=== PATIENT | male | born 1940 | race Caucasian/White ===

== ENCOUNTER 2018-03-16 20:22 | Emergency (ER) | payer OTHER, MEDICARE ==
[~2018-03-16] VITALS: Ht 185.4 cm; Wt 112.5 kg
[2018-03-16 20:35] VITALS: BP_SYST 135
--- NOTE | 2018-03-16 20:35 | NUR ---
Patient triaged and placed in waiting room. VSS and patient appears in no acute distress at this time. Accompanied by family, awaiting available bed, and MD notified of need for MSE.
--- NOTE | 2018-03-16 20:45 | NUR ---
Patient to ER bed 7 for evaluation.
--- NOTE | 2018-03-16 20:45 | NUR ---
Patient to ER via triage for evaluation of bleeding tongue. Patient reports that he bit his tongue during lunch and that it has continued to bleed. Patient is awake, alert and oriented in no acute distress, vital signs stable, respirations even and unlabored, skin warm and dry to touch. Spouse at bedside, patient able to ambulate to bed 7 without difficulty, with slow, steady gait. Awaiting evaluation by ER MD, will continue to observe and assess.
--- NOTE | 2018-03-16 20:50 | NUR ---
ER at bedside examining patient.
--- NOTE | 2018-03-16 20:55 | NUR ---
Medication reconciliation completed with information provided by patient. Any prior medication reconciliation on file was reviewed and corrected.
[2018-03-16] MEDS ORDERED: LANS15CA14 PO (20:56)
[2018-03-16] MEDS ORDERED: CLOP300T2 PO (20:56)
[2018-03-16] MEDS ORDERED: EZET1TAB31 PO (20:56)
[2018-03-16] MEDS ORDERED: TADA5TAB2 PO (20:56)
[2018-03-16] MEDS ORDERED: FURO-150 PO (20:56)
[2018-03-16] MEDS ORDERED: CETI-354 PO (20:56)
[2018-03-16] MEDS ORDERED: NOR10 PO (20:56)
[2018-03-16] MEDS ORDERED: GLU500 PO (20:56)
[2018-03-16] MEDS ORDERED: ISOS30TA6 PO (20:56)
[2018-03-16] MEDS ORDERED: DITXL5 PO (20:56)
--- NOTE | 2018-03-16 21:10 | NUR ---
Patient's tongue has stopped bleeding, Dr Khan notified.
--- NOTE | 2018-03-16 21:15 | NUR ---
Patient refusing lab work at this time, Dr Khan notified of patient's refusal.
[2018-03-16 21:30] VITALS: BP_SYST 130
--- NOTE | 2018-03-16 21:30 | NUR ---
Patient given written and verbal discharge instructions and verbalizes understanding. ER MD discussed with patient the results and treatment provided. Patient in stable condition. ID arm band removed. No RX given. Patient educated on pain management and to follow up with PMD. Pain Scale 0. Opportunity for questions provided and answered. Medication side effect fact sheet provided. Patient left ER in no acute distress, ambulating without difficulty with slow, steady gait with spouse at his side. No active bleeding noted from his tongue.
== END 2018-03-16 21:30 | disposition home or self-care (01) ==
LOC: SED 20:22
DX: S01.512A Laceration without foreign body of oral cavity, initial encounter (principal); I48.91 Unspecified atrial fibrillation; E78.5 Hyperlipidemia, unspecified; E11.9 Type 2 diabetes mellitus without complications; I10 Essential (primary) hypertension; Z88.0 Allergy status to penicillin; Z88.1 Allergy status to other antibiotic agents; Z88.5 Allergy status to narcotic agent; Z88.8 Allergy status to other drugs, medicaments and biological substances; Z79.899 Other long term (current) drug therapy; W50.3XXA Accidental bite by another person, initial encounter; Y93.89 Activity, other specified; Y92.89 Other specified places as the place of occurrence of the external cause; Y99.8 Other external cause status
CPT/HCPCS: 99281

== ENCOUNTER 2019-03-13 11:34 | Emergency (ER) | payer OTHER, MEDICARE ==
[~2019-03-13] VITALS: Ht 185.4 cm; Wt 113.4 kg
[~2019-03-13 11:34] MED LIST: CETI-354 PO; CLOP300T2 PO; DITXL5 PO; EZET1TAB31 PO; FURO-150 PO; GLU500 PO; ISOS30TA6 PO; LANS15CA14 PO; NOR10 PO; TADA5TAB2 PO
[2019-03-13 12:15] VITALS: BP_SYST 150
--- NOTE | 2019-03-13 12:22 | NUR ---
BS 174
--- NOTE | 2019-03-13 13:31 | NUR ---
Patient to ER bed 5 to gown for evaluation. Side rails up.
--- NOTE | 2019-03-13 13:40 | NUR ---
Pt brought self to ER for c/o upper torso rash, redness, no pain, lasting 2 days. Hx asthma, recent laryngitis
--- NOTE | 2019-03-13 13:45 | NUR ---
Dr Orta at bedside to assess
[2019-03-13] MEDS ORDERED: DIPHENHYDRAMINE INJ 50 MG/ML VIAL IM ONE (14:15)
--- NOTE | 2019-03-13 14:38 | NUR ---
50mg Benadryl administered to pt
[2019-03-13 15:07] LABS: BASOPHILS % (AUTO) 0.3 % (0.0-2.0); EOSINOPHILS # (AUTO) 0.1 K/uL (0.0-0.4); EOSINOPHILS % (AUTO) 1.8 % (0.0-4.0); HEMATOCRIT 46.5 % (36-54); HEMOGLOBIN 16.1 g/dL (14.0-18.0); LYMPHOCYTES # (AUTO) 1.8 K/uL (1.0-5.5); LYMPHOCYTES % (AUTO) 22.7 % (20.5-51.5); MEAN CORPUSCULAR HEMOGLOBIN 33 pg (27-31); MEAN CORPUSCULAR HGB CONC 35 % (32-36); MEAN CORPUSCULAR VOLUME 96 fL (79.0-98.0); MONOCYTES # (AUTO) 0.7 K/uL (0.0-1.0); MONOCYTES % (AUTO) 8.7 % (1.7-9.3); NEUTROPHILS # (AUTO) 5.2 K/uL (1.8-7.7); NEUTROPHILS % (AUTO) 66.5 % (40.0-70.0); PLATELET COUNT (AUTO) 142 K/uL (130-430); RED BLOOD CELL COUNT(AUTO) 4.85 MIL/uL (4.2-6.2); RED CELL DISTRIBUTION WIDTH 14.1 % (9.0-15.0); WHITE BLOOD COUNT (AUTO) 7.8 K/uL (4.8-10.8)
[2019-03-13 16:17] VITALS: BP_SYST 118
--- NOTE | 2019-03-13 16:18 | NUR ---
Patient given written and verbal discharge instructions and verbalizes understanding. ER MD discussed with patient the results and treatment provided. Patient in stable condition. ID arm band removed. IV catheter removed intact and dressing applied, no active bleeding. Rx of Benadryl given. Patient educated on pain management and to follow up with PMD. Pain Scale 0/10. Opportunity for questions provided and answered. Medication side effect fact sheet provided.
== END 2019-03-13 16:18 | disposition home or self-care (01) ==
LOC: SED 11:34
DX: B09 Unspecified viral infection characterized by skin and mucous membrane lesions (principal); I10 Essential (primary) hypertension; E11.9 Type 2 diabetes mellitus without complications; K21.9 Gastro-esophageal reflux disease without esophagitis; E78.5 Hyperlipidemia, unspecified; Z79.899 Other long term (current) drug therapy; Z88.6 Allergy status to analgesic agent; Z88.0 Allergy status to penicillin; Z88.1 Allergy status to other antibiotic agents; Z88.3 Allergy status to other anti-infective agents; Z88.8 Allergy status to other drugs, medicaments and biological substances; Z79.51 Long term (current) use of inhaled steroids
CPT/HCPCS: 36415; 85025; 96372; 99283; J1200

== ENCOUNTER 2020-07-26 07:16 | Emergency (ER) | payer OTHER, MEDICARE ==
[~2020-07-26] VITALS: Ht 172.7 cm; Wt 99.8 kg
[~2020-07-26 07:16] MED LIST changes: -ISOS30TA6 PO; +ISOS30TA85 PO
[2020-07-26 07:24] VITALS: BP_SYST 161
[2020-07-26] MEDS ORDERED: OXYM15MI9 NS (08:39)
[2020-07-26 08:50] VITALS: BP_SYST 140
== END 2020-07-26 08:51 | disposition home or self-care (01) ==
LOC: SED 07:16
DX: R04.0 Epistaxis (principal); I10 Essential (primary) hypertension; E11.9 Type 2 diabetes mellitus without complications; K21.9 Gastro-esophageal reflux disease without esophagitis; E78.5 Hyperlipidemia, unspecified; Z79.899 Other long term (current) drug therapy; Z88.1 Allergy status to other antibiotic agents; Z88.0 Allergy status to penicillin; Z88.6 Allergy status to analgesic agent
CPT/HCPCS: 99282

== ENCOUNTER 2021-01-26 11:07 | Emergency (ER) | payer OTHER, MEDICARE ==
[~2021-01-26] VITALS: Ht 185.4 cm; Wt 106.6 kg
[~2021-01-26 11:07] MED LIST changes: +OXYM15MI9 NS
[2021-01-26 11:14] VITALS: BP_SYST 138
[2021-01-26] MEDS ORDERED: HYDR-3917 PO (11:37)
[2021-01-26] MEDS ORDERED: IBUP-1969 PO (11:37)
[2021-01-26] MEDS ORDERED: IBUPROFEN 800 MG TABLET PO ONE (11:45)
[2021-01-26] MEDS ORDERED: HYDROcodone/ACETAMIN 10-325 MG TAB PO ONE (11:45)
[2021-01-26 12:04] VITALS: BP_SYST 136
== END 2021-01-26 12:06 | disposition home or self-care (01) ==
LOC: SED 11:07
DX: M54.41 Lumbago with sciatica, right side (principal); I10 Essential (primary) hypertension; E11.9 Type 2 diabetes mellitus without complications; K21.9 Gastro-esophageal reflux disease without esophagitis; Z88.1 Allergy status to other antibiotic agents; Z88.0 Allergy status to penicillin; Z79.899 Other long term (current) drug therapy
CPT/HCPCS: 99283